=== PATIENT | female | born 1980 | race American Indian/Alaskan Native ===

== ENCOUNTER 2017-07-09 21:01 | Emergency (ER) | payer SELFPAY ==
[2017-07-09 23:14] LABS: Hematocrit 29.1 % (30.3-42.9); Mean Corpuscular HGB Conc 31 % (30-34); Mean Corpuscular Hemoglobin 21 pg (28-32); Mean Corpuscular Volume 67 fl (79-97); Platelet Count 243 K/mm3 (140-440); Red Blood Count 4.37 M/mm3 (3.65-5.03); Red Cell Distribution Width 20.1 % (13.2-15.2)
[2017-07-09 23:25] LABS: INR 0.93 (0.87-1.13)
[2017-07-09 23:26] LABS: Partial Thromboplastin Time 28.9 Sec. (24.2-36.6)
[2017-07-09 23:29] LABS: BUN/Creatinine Ratio 13; Blood Urea Nitrogen 9 mg/dL (7-17); Calcium 8.4 mg/dL (8.4-10.2); Hemolysis Index 2
[2017-07-10 08:49] VITALS: BP 115/79
--- NOTE | 2017-07-10 12:09 | Emergency Department Report ---
ED Extremity Problem HPI - General Chief complaint: Extremity Problem,Nontraumatic Stated complaint: LEG PAIN Time Seen by Provider: 07/10/17 11:42 Source: patient, EMS Mode of arrival: Wheelchair Limitations: No Limitations - History of Present Illness Initial comments: Patient is a 37-year-old Female who has past medical medical history of DVT and PE 2. Patient is supposed to be taking Coumadin but has been living in shelters unable to obtain this medication. Patient states over the past 2 days she has had some right lower leg swelling and pain. Patient states pain is 8 out of 10 in severity and was tight feeling. The patient denies any chest pain shortness of breath nausea vomiting fevers chills at this time. Severity scale (0 -10): 9 - Related Data Previous Rx's Medication Instructions Recorded Last Taken Type Apixaban [Eliquis] 5 mg PO BID #60 tablet 07/10/17 Unknown Rx HYDROcodone/APAP 5-325 [Van 1 each PO Q6HR PRN #12 tablet 07/10/17 Unknown Rx 5/325] Allergies Allergy/AdvReac Type Severity Reaction Status Date / Time No Known Allergies Allergy Unverified 07/09/17 22:20 ED Review of Systems ROS: Stated complaint: LEG PAIN Other details as noted in HPI Comment: All other systems reviewed and negative ED Past Medical Hx - Past Medical History Previous Medical History?: Yes Hx Deep Vein Thrombosis: Yes Hx Pulmonary Embolism: Yes (x 2) Additional medical history: Gallstones - Surgical History Past Surgical History?: Yes Hx Cholecystectomy: Yes Additional Surgical History: C section x 2, 1 ectopic - Social History Smoking Status: Never Smoker - Medications Home Medications: Home Medications Medication Instructions Recorded Confirmed Last Taken Type Apixaban [Eliquis] 5 mg PO BID #60 tablet 07/10/17 Unknown Rx HYDROcodone/APAP 5-325 [Van 1 each PO Q6HR PRN #12 tablet 07/10/17 Unknown Rx 5/325] ED Physical Exam - General Limitations: No Limitations General appearance: alert, in no apparent distress - Head Head exam: Present: atraumatic, normocephalic - Eye Eye exam: Present: normal appearance - ENT ENT exam: Present: mucous membranes moist - Neck Neck exam: Present: normal inspection - Respiratory Respiratory exam: Present: normal lung sounds bilaterally. Absent: respiratory distress, wheezes, rales, rhonchi - Cardiovascular Cardiovascular Exam: Present: regular rate, normal rhythm. Absent: systolic murmur, diastolic murmur, rubs, gallop - GI/Abdominal GI/Abdominal exam: Present: soft, normal bowel sounds - Extremities Exam Extremities exam: Present: normal inspection, other (patient has 1+ edema to the right lower extremity.) - Back Exam Back exam: Present: normal inspection - Neurological Exam Neurological exam: Present: alert, oriented X3 - Psychiatric Psychiatric exam: Present: normal affect, normal mood - Skin Skin exam: Present: warm, dry, intact, normal color. Absent: rash ED Course Vital Signs 07/09/17 07/09/17 07/10/17 21:07 22:26 08:48 Temperature 98.8 F 98.8 F 98.2 F Pulse Rate 92 H 88 71 Respiratory 18 18 18 Rate Blood Pressure 110/72 110/72 115/79 O2 Sat by Pulse 97 98 100 Oximetry ED Medical Decision Making - Lab Data Result diagrams: 07/09/17 23:01 07/09/17 23:01 - Medical Decision Making Ultrasound Doppler of the right lower extremity shows that she has no DVT the patient does have some superficial thrombophlebitis in the greater saphenous vein on the right. Patient will only need pain meds and warm compress aspirin for superficial thrombophlebitis however with her significant history and leg swelling I do feel it necessary to place the patient on [facility] to continue with her anticoagulation. Patient was given a freeze 30 day trial. Critical care attestation.: If time is entered above; I have spent that time in minutes in the direct care of this critically ill patient, excluding procedure time. ED Disposition Clinical Impression: Thrombophlebitis Disposition: DC-01 TO HOME OR SELFCARE Is pt being admited?: No Does the pt Need Aspirin: No Condition: Stable Instructions: Superficial Thrombophlebitis (ED), Peripheral Vascular Disorders (ED) Prescriptions: Apixaban [Eliquis] 5 mg PO BID #60 tablet HYDROcodone/APAP 5-325 [Van 5/325] 1 each PO Q6HR PRN #12 tablet PRN Reason: Pain Referrals: [facility] [Outside] - 3-5 Days
--- NOTE | 2017-07-11 13:54 | Vascular Lab Report ---
LOWER EXTREMITY VENOUS DUPLEX: REASON FOR EXAM: Pain and swelling of the lower extremities. COMMENTS ON THE RIGHT: A short segment of the lesser saphenous vein behind the knee appears to contain indeterminate age thrombus.. The remaining veins visualized are freely compressible without evidence of internal echogenicity. Spontaneous and phasic flow is present proximally. COMMENTS ON THE LEFT: All veins visualized are freely compressible without evidence of internal echogenicity. Flow is spontaneous and phasic throughout. IMPRESSION: Indeterminate age thrombus involving the proximal right lesser saphenous vein. There is no extension into the deep veins. No evidence of acute deep venous thrombosis in the left lower extremity.
== END 2017-07-10 15:05 | disposition home or self-care (01) ==
LOC: ED 21:01
DX: I80.9 Phlebitis and thrombophlebitis of unspecified site (principal); Z86.718 Personal history of other venous thrombosis and embolism; Z86.711 Personal history of pulmonary embolism; Z90.49 Acquired absence of other specified parts of digestive tract
CPT/HCPCS: 36415; 80048; 84703; 85027; 85610; 85730; 93970; 99284